=== PATIENT | female | born 1965 | race Hispanic/Latino ===

== ENCOUNTER 2023-11-07 19:12 | Emergency (ER) | payer BC, OTHER ==
[~2023-11-07] VITALS: Ht 165.1 cm; Wt 77.1 kg
[2023-11-07] MEDS: KETOROLAC 15MG/ML VIAL (15MG/ML) IV ONE (19:31)
[2023-11-07] MEDS: MORPHINE 2 MG SYG IVP ONE ×2 (19:31→21:52)
[2023-11-07] MEDS: ONDANSETRON 4MG INJ IVP ONE (19:31)
[2023-11-07] MEDS: FENTanyl CITRate PF 50 MCG/1 ML 2ML VIAL IVP ONE (20:15)
[2023-11-07] MEDS ORDERED: KETO10TA2 PO (21:19)
[2023-11-07] MEDS ORDERED: ACET-2079 PO (21:19)
[2023-11-07 21:24] VITALS: BP 120/85; PULSE 74; RESP 20; O2SAT 98
== END 2023-11-07 21:34 | disposition home or self-care (01) ==
LOC: EDH 19:12
DX: S42.252A Displaced fracture of greater tuberosity of left humerus, initial encounter for closed fracture (principal); I10 Essential (primary) hypertension; Z79.899 Other long term (current) drug therapy; W01.0XXA Fall on same level from slipping, tripping and stumbling without subsequent striking against object, initial encounter; Y93.01 Activity, walking, marching and hiking; Y92.89 Other specified places as the place of occurrence of the external cause; Y99.8 Other external cause status
CPT/HCPCS: 99284; 96374; 96375; 71045; 73120; 73060; 73030; 96376; J3010; J2270 ×2; J2405; J1885